=== PATIENT | female | born 1975 | race Caucasian/White ===

== ENCOUNTER 2018-09-03 08:37 | Day surgery (SDC) | payer OTHER ==
[~2018-09-03] VITALS: Ht 165.1 cm; Wt 68.5 kg
[~2018-09-03 08:37] MED LIST: BUPIVAC MPF-EPI 0.5%-1:200000 30 ML VIAL. ONE; HYDROmorphone 2 MG/ML VIAL IV PRN; IV RINGERS,LACTATED 1000ML 1,000 ML IV SCH; LIDOCAINE 1% PF 2 ML VIAL. ID PRN; MORPHINE SULFATE 2 MG/ML VIAL. IV PRN; ONDANSETRON PF 4 MG/2 ML VIAL. IV PRN; PROCHLORPERAZINE 10 MG/2 ML VIAL. IV PRN; fentaNYL PF VIAL 100 MCG/2 ML VIAL IV PRN
[2018-09-03] MEDS ORDERED: ESTR0.5T PO (08:47)
[2018-09-03] MEDS ORDERED: novolog insulin pump SQ (08:49)
[2018-09-03 09:01] LABS: U PREG PATIENT NEGATIVE (NEG)
[2018-09-03] MEDS ORDERED: GLYCOPYRROLATE 1 MG/5 ML VIAL. ONE (09:16)
[2018-09-03] MEDS ORDERED: fentaNYL PF VIAL 100 MCG/2 ML VIAL ONE (09:16)
[2018-09-03] MEDS ORDERED: ROCURONIUM 50 MG/5 ML VIAL. ONE (09:16)
[2018-09-03] MEDS ORDERED: NEOSTIGMINE METHYLSULFATE 5 MG/5 ML SYRINGE. ONE (09:16)
[2018-09-03] MEDS ORDERED: MIDAZOLAM HCL/PF 2 MG/2 ML VIAL. ONE (09:16)
[2018-09-03] MEDS ORDERED: PROPOFOL 20 ML IV ONE (09:17)
[2018-09-03] MEDS ORDERED: LIDOCAINE 2% PF Vial for OR 5 ML VIAL. ONE (09:18)
[2018-09-03] MEDS ORDERED: KETOROLAC 30 MG/ML INJ FOR OR. INJ ONE (09:18)
[2018-09-03] MEDS ORDERED: ONDANSETRON PF 4 MG/2 ML VIAL. ONE (09:18)
[2018-09-03] MEDS ORDERED: DEXAMETHASONE SOD PHOS 20 MG/5 ML VIAL. ONE (09:18)
[2018-09-03] MEDS ORDERED: ESMOLOL 100 MG/10 ML VIAL. IV ONE (10:08)
[2018-09-03] MEDS ORDERED: ePHEDrine PF IN SALINE 50 MG/5 ML DISP.SYRIN IV ONE (10:10)
[2018-09-03] MEDS ORDERED: PHENYLEPHRINE 10 MG/ML VIAL. ONE (10:13)
--- NOTE | 2018-09-03 10:37 | PDOC4 ---
Operative Note Operative Note Date: 09/03/2018 Preoperative diagnosis: Biliary dyskinesia Postoperative diagnosis: Same Procedure: Laparoscopic cholecystectomy Specimen: Gallbladder Surgeon: Bay Dictation: Patient is a 43-year-old female has had right upper quadrant abdominal pain postprandial nausea HIDA scan showing ejection fraction of 39%. Procedure laparoscopic cholecystectomy was explained to the patient detail was benefits were also discussed including bleeding infection injury to intra- abdominal contents possibly necessitating further open operations. Patient seemed understanding Gibble formal written consent had a procedure performed. Patient was taken to the operating room placed in supine position general anesthesia was initiated once patient was sleeping and intubated her abdomen was prepped and draped usual sterile fashion using ChloraPrep and area just below the umbilicus was injected with quarter percent Marcaine with epinephrine incision was made with a blade scalpel and a Veress needle was placed within the abdomen creating pneumoperitoneum. Once this was completed 11 mm port was placed and a 5 mm camera was placed within the abdomen which was inspected no other abnormalities were noted. At this point a 5 mm port was placed in the epigastrium area and two 5 mm ports were placed in the right mid abdomen and right lateral abdomen all under direct visualization. The dome of the gallbladder was grasped and retracted cephalad the infundibulum of the gallbladder was grasped retracted laterally the triangle taken out of its adherent tissues exposing the cystic duct and cystic artery both were doubly clipped and transected the gallbladder was taken off the liver with hook electrocautery placed in Endo Catch bag and removed and a umbilicus the right upper quadrant was irrigated and suctioned dry hemostased using the appropriate the pneumoperitoneum was reduced all ports removed the fascial defect at the umbilicus closed [id number] 0 Vicryl suture and the skin was reapproximated all port sites for subarticular Monocryl Mastisol Steri-Strips and Band-Aids were applied as dressings. The patient was awakened and extended in the operating room taken to recovery in stable condition all sponge instrument needle counts was described estimated blood loss 5 mL DENISE PEMBERTON MD Sep 03, 2018 10:37 am
--- NOTE | 2018-09-03 10:37 | DISCH ---
DISCHARGE INSTRUCTIONS Condition on Discharge Condition on Discharge: Stable Activity After Discharge Activity Instructions for Disc: Avoid exertion Other activity instructions: no lifting more than 20 pounds for 2 weeks Diet after Discharge Diet after Discharge: Low Fat Wound Incision Care Other wound/incision instructi: May shower in 24 hours Contacting the after DC Call your doctor for: If your condition worsens Follow-Up Follow up with: Dr. Pemberton in 2 weeks DENISE PEMBERTON MD Sep 03, 2018 10:37 am
[2018-09-03] MEDS: fentaNYL PF VIAL 100 MCG/2 ML VIAL IV PRN ×2 (10:50→11:44)
[2018-09-03] MEDS ORDERED: OXYC1TAB15 PO (11:07)
[2018-09-03] MEDS ORDERED: oxyCODONE/APAP 5/325 1 TAB TABLET PO ONE (11:30)
[2018-09-03] MEDS ORDERED: ceFAZolin 2GM PREMIX 2 GM/50 ML BAG IV ONE (12:00)
[2018-09-03 12:25] VITALS: BP 119/72
--- NOTE | 2018-09-04 16:09 | PATHOLOGY ---
[facility] Accession Number: [id number] . 01 Material submitted: . GALLBLADDER AND CONTENTS . 01 Clinical history: . Biliary dyskinesia . 02 Diagnosis: Gallbladder, laparoscopic cholecystectomy: - Cholesterolosis, focally polypoid. - Chronic cholecystitis, mild. (JPM:asha; 09/04/2018) QMS/09/04/2018 . 02 Comment: There are no calculi identified within the gallbladder lumen or specimen container. There is no evidence of malignancy. (JPM:asha; 09/04/2018) . 02 Electronically signed: . Boyd Alarcon MD, Pathologist NPI- [id number] . 01 Gross description: . The specimen is received in formalin, labeled "Tyler, Ellouise, gallbladder and contents" and consists of an intact green-broussard and focally edematous gallbladder measuring 7.6 cm in length and up to 2.8 cm in diameter. The margin is inked black and opening reveals a lumen filled with tenacious green bile/sludge and no calculi. The mucosa is green with yellow highlights and a single possible polyp measuring 0.3 x 0.3 cm. The wall averages 0.1 cm. No additional masses or lesions are identified. Professor Of Kinesiology sections are submitted in A1 including the possible polyp. (SDY; 09/03/2018) SYU/SYU . 02 Pathologist provided ICD-10: K82.4, K81.1 . 02 CPT . 861908 Specimen Comment: A courtesy copy of this report has been sent to Specimen Comment: [phone], . Specimen Comment: Report sent to and Specimen Comment: A duplicate report has been generated due to demographic updates. Performed at: 01 [facility] [address] [facility] [address], [place] [id number] MD Lupillo Rico MD Phone: [phone] Performed at: 02 [facility] [address] [place], [place] [id number] MD Boyd Alarcon MD Phone: [phone]
== END 2018-09-03 13:04 | disposition home or self-care (01) ==
LOC: SURG 08:37
PROVIDERS: ATTEND Surgery
DX: K81.1 Chronic cholecystitis (principal); E10.9 Type 1 diabetes mellitus without complications; Z79.4 Long term (current) use of insulin; E28.2 Polycystic ovarian syndrome; Z72.89 Other problems related to lifestyle; Z79.899 Other long term (current) drug therapy
CPT/HCPCS: 47562; 81025; 82962; 88304; A7015; J0690; J0780; J1100; J1885; J2001; J2250; J2405; J2704; J2710; J3010; J3490; J7030; J7120